=== PATIENT | male | born 1995 | race Two or more races ===

== ENCOUNTER 2022-08-08 09:19 | Emergency (ER) | payer OTHER ==
[~2022-08-08] VITALS: Ht 182.9 cm; Wt 81.6 kg
--- NOTE | 2022-08-08 09:22 | NUR ---
GURJIT [employer] FOR MEDICAL CLEARANCE PRIOR TO BOOKING. PT W/ C/O COUGH AND CONGESTION. TO ER BED 10.
[2022-08-08] MEDS ORDERED: NAPR-1164 PO (09:27)
--- NOTE | 2022-08-08 09:30 | NUR ---
AT BEDSIDE FOR EVAL
--- NOTE | 2022-08-08 09:55 | NUR ---
COVID SWAB SENT TO LAB
--- NOTE | 2022-08-08 10:06 | NUR ---
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
--- NOTE | 2022-08-08 10:45 | NUR ---
PT MEDICALLY CLEARED FOR BOOKING. DISCHARGED TO LAW ENFORCEMENT IN STABLE CONDITION, ACCOMPANIED BY 2 [facility]. DISCHARGE PAPERS PROVIDED, VERBALIZED UNDERSTANDING.
[2022-08-08 10:46] VITALS: BP 120/69
== END 2022-08-08 10:47 ==
LOC: ER 09:23
DX: Z20.822 Contact with and (suspected) exposure to COVID-19 (principal); S89.91XS Unspecified injury of right lower leg, sequela; V49.9XXS Car occupant (driver) (passenger) injured in unspecified traffic accident, sequela; M25.561 Pain in right knee
CPT/HCPCS: 99284; 71045; 87426; C9803